=== PATIENT | female | born 1955 | race Hispanic/Latino ===

== ENCOUNTER 2017-03-02 06:04 | Day surgery (SDC) | payer BC ==
[2017-02-25 11:15] VITALS: BMI 32.1
[2017-03-02 07:06] LABS: BASO # 0.03 K/mm3 (0.0-2.0); BASO % 0.3 % (0.0-3.0); EOS # 0.2 (0.0-0.7); EOS % 1.8 % (1.5-5.0); GRAN # 6.5 (1.4-6.5); GRAN % 57.2 % (50.0-68.0); HEMATOCRIT 41.3 % (36.0-48.0); LYMPH % 35.1 % (22.0-35.0); MEAN CELL VOLUME 90.8 fl (80.0-105.0); MEAN CORPUSCULAR HEMOGLOBIN 29.5 pg (25.0-35.0); MEAN CORPUSCULAR HGB CONC 32.4 g/dl (31.0-37.0); MEAN PLATELET VOLUME 9.5 fl (7.0-11.0); MONO # 0.6 (0.1-0.6); MONO % 5.6 % (1.0-6.0); RED CELL DISTRIBUTION WIDTH 13.1 % (11.5-14.5); WHITE BLOOD COUNT 11.4 10^3/ul (4.5-11.0)
[2017-03-02 07:09] LABS: BLOOD UREA NITROGEN 16 mg/dL (7-21); CALCIUM 9.1 mg/dL (8.4-10.5); CARBON DIOXIDE 27 mmol/L (21-33); CHLORIDE 105 mmol/L (98-107); GFR AFRICAN-AMERICAN > 60; GLUCOSE,RANDOM 176 mg/dL (70-110); POTASSIUM 4.3 mmol/L (3.6-5.0); SODIUM 145 mmol/L (132-148)
[2017-03-02] MEDS ORDERED: Iohexol 350 MG/100 ML VIAL ONE (07:12)
[2017-03-02] MEDS ORDERED: Lidocaine 2% Inj (20ml) ONE (07:12)
[2017-03-02] MEDS ORDERED: Iohexol 350mgl/ml 50 ML ONE (07:12)
[2017-03-02] MEDS ORDERED: Phenylephrine 10 mg/ml Inj ONE (07:13)
[2017-03-02] MEDS ORDERED: Midazolam 2 MG/2 ML VIAL ONE ×2 (07:51→07:59)
[2017-03-02] MEDS ORDERED: Sodium Chloride 0.9% 1,000 ML IV SCH (08:45)
[2017-03-02 08:57] VITALS: TEMP 98
--- NOTE | 2017-03-02 12:10 | CARD ---
APPROVED REPORT EKG Measurement Heart [id number] <Conclusion> Normal sinus rhythm LAD Inferior infarct, age undetermined PRWP NSSTW changes
[2017-03-02 14:02] VITALS: RESP 18
[2017-03-02 14:03] VITALS: BP 150/89; PULSE 88; O2SAT 94
--- NOTE | 2017-03-02 18:07 | CARDCATH ---
PROCEDURE DATE: 03/02/2017 HISTORY: The patient is a 61-year-old woman, who presents with chest pain. She complains of chest pain as well. The patient's past medical history is notable for a questionable VT 14 years ago. She is currently an active smoker and currently takes Lipitor at home. Her past medical history consists of diabetes mellitus, depression as well as COPD treated with Flonase and Singulair. Because of an abnormal stress test and his cardiac risk factors, the patient was referred for cardiac catheterization. PROCEDURE: Left heart catheterization with coronary angiography and left ventriculogram. The right femoral artery was cannulated with 6-[place] sheath. There were no complications. Findings on catheterization revealed a left ventricle that contracted normally. Estimated ejection fraction is 70%. Her coronary anatomy revealed a right coronary artery that was a codominant vessel. The RCA was diffusely diseased with 50-60% long lesion extending from the proximal to the midportion of the RCA. The RCA was occluded in its midportion. The main artery was a narrow vessel, is free of significant disease. The LAD and diagonal vessels revealed diffuse atherosclerosis throughout its coronary tree with multiple 50 and 60% lesions throughout its course. The circumflex artery was a codominant vessel with diffuse atherosclerosis with multiple 50 and 60% lesions throughout its course. The patient tolerated the procedure well. Angio-Seal was used to close the femoral artery site. In summary, the procedure revealed diffuse atherosclerosis throughout the coronary tree, chronically occluded RCA, multiple 50 and 60% lesions throughout the LAD and circumflex artery. LV function is normal. Given these findings, the patient's treatment will be medical. I have strongly advised her about the need to stop smoking. We will add aspirin to her regimen as well as Lipitor. Rohit Garcia MD
== END 2017-03-02 16:17 | disposition home or self-care (01) ==
LOC: CATH 06:04
PROVIDERS: ATTEND Internal Medicine Cardiovascular Disease
DX: I25.10 Atherosclerotic heart disease of native coronary artery without angina pectoris (principal); E11.9 Type 2 diabetes mellitus without complications; F32.89 Other specified depressive episodes; I25.2 Old myocardial infarction; J44.9 Chronic obstructive pulmonary disease, unspecified
CPT/HCPCS: 36415; 80048; 85025; 85610; 85730; 86850; 86900; 93005; 93458; 99152; C1760; C1769; C2629; J1644; J2250; J3010; J7040 ×2; Q9967

== ENCOUNTER 2017-07-20 14:06 | Inpatient (IN) | payer BC ==
[2017-07-20 15:44] VITALS: BMI 35.3
[2017-07-20] MEDS ORDERED: Albuterol-Ipratrop 3 mg / 0.5 (3 ml) UD IH STA ×3 (16:17→16:26)
[2017-07-20] MEDS ORDERED: cefTRIAXone 1 gm 1 GM/100 ML BAG IVPB STA (16:30)
[2017-07-20] MEDS ORDERED: Azithromycin 500MG/NS 250ml 500 MG/250 ML BAG IVPB STA (16:30)
[2017-07-20] MEDS ORDERED: Magnesium Sulfate 2 GM in Sodium Chloride 0.9% 100 ML IVPB ONE (16:32)
[2017-07-20 17:06] LABS: BASO # 0.03 K/mm3 (0.0-2.0); BASO % 0.2 % (0.0-3.0); EOS % 0.1 % (1.5-5.0); GRAN # 12.34 (1.4-6.5); GRAN % 70.1 % (50.0-68.0); HEMOGLOBIN 12.8 g/dL (12.0-16.0); LYMPH # 3.8 (1.2-3.4); LYMPH % 21.8 % (22.0-35.0); MEAN CELL VOLUME 88.7 fl (80.0-105.0); MEAN CORPUSCULAR HEMOGLOBIN 29.6 pg (25.0-35.0); MEAN CORPUSCULAR HGB CONC 33.4 g/dl (31.0-37.0); MEAN PLATELET VOLUME 9.8 fl (7.0-11.0); MONO # 1.4 (0.1-0.6); MONO % 7.8 % (1.0-6.0); RBC 4.32 10^6/uL (3.5-6.1); RED CELL DISTRIBUTION WIDTH 13.3 % (11.5-14.5); WHITE BLOOD COUNT 17.6 10^3/ul (4.5-11.0)
[2017-07-20 17:10] LABS: VENOUS BLOOD GAS PO2 47 mm/Hg (30-55)
[2017-07-20 17:32] LABS: B-TYPE NATRIURETIC PEPTIDE 192 pg/mL (0-450); TROPONIN I < 0.01 ng/mL
[2017-07-20 17:38] LABS: ALT/SGPT 25 U/L (7-56); AST/SGOT 35 U/L (14-36); BLOOD UREA NITROGEN 19 mg/dL (7-21); CALCIUM 9.4 mg/dL (8.4-10.5); GFR AFRICAN-AMERICAN 50; GFR NON-AFRICAN AMERICAN 42
[2017-07-20 17:40] LABS: CK-MB 1.4 ng/mL (0.0-3.6)
[2017-07-20] MEDS ORDERED: Albuterol-Ipratrop 3 mg / 0.5 (3 ml) UD IH PRN (19:34)
--- NOTE | 2017-07-20 21:20 | ED PDOC ---
Arrival/HPI - General Chief Complaint: Shortness Of Breath Time Seen by Provider: 07/20/17 15:59 Historian: Patient - History of Present Illness Narrative History of Present Illness (Text): 07/20/17 21:21 62yr old female with hx of COPD presents today with cough, sob and fevers x 4-5 days. pt states she was seen by her PMD and diagnosed with the flu 5 days ago. pt states she has been taking tamiflu but not feeling better. pt states that she hasnt been eating well. pt states she has been fatigued and unable to get out of bed. pt states she started to have increased difficulty breathing over the past few days and had xray today. pt presents with continued SOB. no vomiting/diarrhea. no cp. no abdominal pain. no other complaints. Time/Duration: Other (5 days) Symptom Course: Worsening Quality: Aching Severity Level: 5 Past Medical History - Provider Review Nursing Documentation Reviewed: Yes - Travel History Have you recently traveled outside [place] w/in the past 3 mons?: No - Tetanus Immunization Tetanus Immunization: Unknown - Cardiac Hx [place]: Yes Hx Pacemaker: No - Pulmonary Hx Chronic Obstructive Pulmonary Disease (COPD): Yes - Neurological Hx Paralysis: No - Hematological/Oncological Hx Blood Transfusions: No - Musculoskeletal/Rheumatological Hx Musculoskeletal Disorders: Yes - Psychiatric Hx Anxiety: Yes Hx Depression: Yes Hx Emotional Abuse: No Hx Physical Abuse: No Hx Substance Use: No - Surgical History Other/Comment: ovary removed - Anesthesia Hx Anesthesia Reactions: No Hx Malignant Hyperthermia: No - Suicidal Assessment Feels Threatened In Home Enviroment: No Family/Social History - Physician Review Nursing Documentation Reviewed: Yes Family/Social History: Unknown Family HX Smoking Status: Former Smoker Hx Alcohol Use: No Hx Substance Use: No Allergies/Home Meds Allergies/Adverse Reactions: Allergies fluoxetine [From Prozac] Allergy (Severe, Verified 07/20/17 16:19) HIVES Home Medications: Home Meds Medication Instructions Recorded Confirmed Alprazolam [Xanax] 0.5 mg PO BID PRN 02/23/17 03/02/17 Fluticasone Nasal [Flonase] 2 spr NS DAILY 02/23/17 03/02/17 Montelukast [Singulair] 10 mg PO HS 02/23/17 03/02/17 Venlafaxine [Effexor XR] 300 mg PO HS 02/23/17 03/02/17 traZODone [trazodone Hydrochloride] 150 mg PO HS 02/23/17 03/02/17 Aspirin 81 mg PO DAILY 03/02/17 03/02/17 Atorvastatin [Lipitor] 20 mg PO DAILY 03/02/17 03/02/17 Review of Systems - Review of Systems Constitutional: Fatigue, Fevers ENT: Sore Throat, Sinus Congestion Respiratory: SOB, Cough, Wheezing Cardiovascular: absent: Chest Pain, Palpitations Gastrointestinal: absent: Abdominal Pain, Nausea, Vomiting Genitourinary Female: absent: Dysuria, Frequency Musculoskeletal: Other (bodyaches). absent: Arthralgias Skin: absent: Rash, Pruritis Neurological: Headache Psychiatric: absent: Anxiety, Depression Physical Exam Vital Signs Reviewed: Yes Vital Signs Temp Pulse Resp BP Pulse Ox 07/20/17 20:55 100 H 25 H 126/74 96 07/20/17 18:10 101 H 18 139/79 86 L 07/20/17 18:00 22 88 L 07/20/17 17:50 89 18 103/75 91 L 07/20/17 16:00 98.4 F 99 H 18 101/71 89 L 07/20/17 15:42 98.5 F 114 H 16 109/68 85 L Temperature: Afebrile Blood Pressure: Normal Pulse: Tachycardic Respiratory Rate: Tachypneic Appearance: Positive for: Well-Appearing, Non-Toxic, Uncomfortable Pain Distress: Moderate Mental Status: Positive for: Alert and Oriented X 3 - Systems Exam Head: Present: Atraumatic Mouth: Present: Moist Mucous Membranes Pharnyx: Present: Normal Nose (External): Present: Atraumatic Nose (Internal): Present: Normal Inspection Neck: Present: Normal Range of Motion, Trachea Midline. No: Meningeal Signs Respiratory/Chest: Present: Accessory Muscle Use, Wheezes, Rhonchi, Tachypneic. No: Rales, Tender to Palpation Cardiovascular: Present: Tachycardic. No: Murmurs Abdomen: No: Tenderness, Rebound, Guarding Back: Present: Normal Inspection. No: CVA Tenderness Upper Extremity: Present: Normal ROM Lower Extremity: No: Edema Neurological: Present: GCS=15, Speech Normal Skin: Present: Warm, Dry Psychiatric: Present: Alert, Oriented x 3 Medical Decision Making ED Course and Treatment: 07/20/17 21:30 62-year-old female history of COPD presents tachypneic hypoxic tachycardic Patient with diffuse wheezing bilaterally, tachypnea saturating 85% on room air Patient was given 3 duo nebs, Solu-Medrol 125MG iv, magnesium 2g iv CBC: White blood cell count 17.6 CMP: Glucose 137 BNP: wnl Troponin within normal limits Chest x-ray shows no infiltrate or effusion EKG shows some sinus tachycardia at [address] elevations pt was seen and evaluated by dr. hu; pt feeling better with medications; still hypoxic, still tachypneic - BIPAP started. rocephin 1g IV zithromax 500mg IV pt reassessment; pt feeling much better on bipap. pt remains stable; will admit to tele. case discussed with dr. Jud saleh; accepts admission with pulm consult dr. zhou. impression; copd exacerbation, leukocytosis admit to tele. Reassessment Condition: Re-examined, Improving,but remains with symptoms - Lab Interpretations Lab Results: 07/20/17 16:30 07/20/17 16:30 Lab Results 07/20/17 16:30: pO2 47, VBG pH 7.40, VBG pCO2 48.0, VBG HCO3 29.7 H, VBG Total CO2 31.2 H, VBG O2 Sat (Calc) 86.0 H, VBG Base Excess 4.0 H, VBG Potassium 4.7, Sodium 133.0, Chloride 99.0, Glucose 141 H, Lactate 1.3, FiO2 21.0, Venous Blood Potassium 4.7 07/20/17 16:30: WBC 17.6 H D, RBC 4.32, Hgb 12.8, Hct 38.3, MCV 88.7, MCH 29.6, MCHC 33.4, RDW 13.3, Plt Count 294, MPV 9.8, Gran % 70.1 H, Lymph % (Auto) 21.8 L, [place] % (Auto) 7.8 H, Eos % (Auto) 0.1 L, Baso % (Auto) 0.2, Gran # 12.34 H, Lymph # (Auto) 3.8 H, [place] # (Auto) 1.4 H, Eos # (Auto) 0.0, Baso # (Auto) 0.03 07/20/17 16:30: Sodium 137, Chloride 95 L, Potassium 4.9, Carbon Dioxide 28, Anion Gap 19, BUN 19, Creatinine 1.3 H, Est GFR ( Amer) 50, Est GFR (Non- Af Amer) 42, Random Glucose 137 H, Calcium 9.4, Total Bilirubin 0.8, AST 35, ALT 25, Alkaline Phosphatase 131 H D, Lactate Dehydrogenase 731 H, Total Creatine Kinase 287 H, CK-MB (CK-2) 1.4, CK-MB (CK-2) % Cancelled, Troponin I < 0.01, NT-Pro-B Natriuret Pep 192, Total Protein 8.0, Albumin 4.0, Globulin 3.9, Albumin/Globulin Ratio 1.0 L 07/20/17 16:30: Influenza Typ A,B (EIA) Negative for flu a/b - Medication Orders Current Medication Orders: Albuterol/Ipratropium (Duoneb 3 Mg/0.5 Mg (3 Ml) Ud) 3 ml IH Q2H PRN PRN Reason: Shortness of Breath Stop: 07/20/17 23:46 Albuterol/Ipratropium (Duoneb 3 Mg/0.5 Mg (3 Ml) Ud) 3 ml IH Q4H JAVIER Alprazolam (Xanax) 0.5 mg PO BID PRN; Protocol PRN Reason: Anxiety Arformoterol Tartrate (Brovana) 15 mcg IH [id number] JAVIER Aspirin (Aspirin Chewable) 81 mg PO DAILY JAVIER Atorvastatin Calcium (Lipitor) 20 mg PO DAILY JAVIER Doxycycline Hyclate (Doryx) 100 mg PO BID JAVIER PRN Reason: Protocol Methylprednisolone (Solu-Medrol) 60 mg IVP Q12 JAVIER Pantoprazole Sodium (Protonix Ec Tab) 40 mg PO DAILY JAVIER Discontinued Medications Albuterol/Ipratropium (Duoneb 3 Mg/0.5 Mg (3 Ml) Ud) 3 ml IH STAT STA Stop: 07/20/17 16:18 Last Admin: 07/20/17 16:38 Dose: 3 ml Albuterol/Ipratropium (Duoneb 3 Mg/0.5 Mg (3 Ml) Ud) 3 ml IH STAT STA Stop: 07/20/17 16:20 Last Admin: 07/20/17 16:59 Dose: 3 ml Albuterol/Ipratropium (Duoneb 3 Mg/0.5 Mg (3 Ml) Ud) 3 ml IH STAT STA Stop: 07/20/17 16:27 Last Admin: 07/20/17 16:59 Dose: 3 ml Ceftriaxone Sodium (Rocephin 1 Gram Ivpb) 1 gm in 100 mls @ 200 mls/hr IVPB STAT STA PRN Reason: Protocol Stop: 07/20/17 16:59 Last Admin: 07/20/17 16:38 Dose: 200 mls/hr eMAR Start Stop Document 07/20/17 16:38 EQ (Rec: 07/20/17 16:38 EQ [id number]) Intravenous Solution Start Date 07/20/17 Start Time 16:38 Azithromycin (Zithromax 500mg In Ns) 500 mg in 250 mls @ 167 mls/hr IVPB STAT STA PRN Reason: Protocol Stop: 07/20/17 17:59 Last Admin: 07/20/17 18:01 Dose: 167 mls/hr eMAR Start Stop Document 07/20/17 18:01 EQ (Rec: 07/20/17 18:01 EQ [id number]) Intravenous Solution Start Date 07/20/17 Start Time 18:01 Magnesium Sulfate 2 gm/ Sodium (Chloride) 104 mls @ 102 mls/hr IVPB ONCE ONE Stop: 07/20/17 17:33 Last Admin: 07/20/17 16:57 Dose: 102 mls/hr eMAR Start Stop Document 07/20/17 16:57 EQ (Rec: 07/20/17 16:58 EQ [id number]) Intravenous Solution Start Date 07/20/17 Start Time 16:57 Methylprednisolone (Solu-Medrol) 125 mg IVP STAT STA Stop: 07/20/17 16:20 Last Admin: 07/20/17 16:38 Dose: 125 mg IVP Administration Document 07/20/17 16:38 EQ (Rec: 07/20/17 16:38 EQ [id number]) Charges for Administration # of IVP Administrations 1 Disposition/Present on Arrival - Present on Arrival Any Indicators Present on Arrival: No History of DVT/PE: No History of Uncontrolled Diabetes: No Urinary Catheter: No History of Decub. Ulcer: No History Surgical Site Infection Following: None - Disposition Have Diagnosis and Disposition been Completed?: Yes Diagnosis: COPD exacerbation, Leukocytosis, Hypoxia Disposition: HOSPITALIZED Disposition Time: 18:25 Patient Plan: Admission, Telemetry Patient Problems: Current Active Problems Problem Status Onset COPD exacerbation Acute Hypoxia Acute Leukocytosis Acute Condition: FAIR
[2017-07-20 23:27] LABS: URINE BILIRUBIN NEGATIVE (NEGATIVE); URINE BLOOD TRACE-LYSED (NEGATIVE); URINE GLUCOSE (UA) 100 mg/dL (NEGATIVE); URINE LEUKOCYTE ESTERASE NEGATIVE Leu/uL (NEGATIVE); URINE NITRATE NEGATIVE (NEGATIVE); URINE PROTEIN TRACE mg/dL (<30 mg/dL)
[2017-07-20 23:45] LABS: URINE APPEARANCE CLEAR (CLEAR); URINE COLOR YELLOW (YELLOW)
[2017-07-20 23:53] LABS: URINE BACTERIA MOD (NEG); URINE WBC 0 - 2 /hpf (0-6)
[2017-07-21] MEDS: Albuterol-Ipratrop 3 mg / 0.5 (3 ml) UD IH SCH ×7 (01:17→21:07)
[2017-07-21] MEDS: Arformoterol 15 mcg/2 ml Inh Sol IH SCH ×3 (08:01→21:07)
[2017-07-21] MEDS: Fluticasone Nasal 50 mcg/Spray NS SCH (09:43)
--- NOTE | 2017-07-21 10:03 | CARD ---
APPROVED REPORT EKG Measurement Heart [id number] <Conclusion> Sinus tachycardia LAD IMI, old PRWP NSSTW changes No change
[2017-07-21 11:11] LABS: BASO # 0.02 K/mm3 (0.0-2.0); BASO % 0.1 % (0.0-3.0); GRAN # 16.26 (1.4-6.5); GRAN % 81.6 % (50.0-68.0); HEMOGLOBIN 12.4 g/dL (12.0-16.0); LYMPH # 2.9 (1.2-3.4); LYMPH % 14.4 % (22.0-35.0); MEAN CELL VOLUME 88.7 fl (80.0-105.0); MEAN CORPUSCULAR HEMOGLOBIN 29.1 pg (25.0-35.0); MEAN CORPUSCULAR HGB CONC 32.8 g/dl (31.0-37.0); MONO # 0.8 (0.1-0.6); MONO % 3.9 % (1.0-6.0); RBC 4.26 10^6/uL (3.5-6.1); RED CELL DISTRIBUTION WIDTH 13.4 % (11.5-14.5); WHITE BLOOD COUNT 19.9 10^3/ul (4.5-11.0)
[2017-07-21 11:13] LABS: ALB/GLOB RATIO 0.9 (1.1-1.8); ALBUMIN 3.8 g/dL (3.0-4.8); ALT/SGPT 22 U/L (7-56); AST/SGOT 31 U/L (14-36); BLOOD UREA NITROGEN 22 mg/dL (7-21); CALCIUM 9.7 mg/dL (8.4-10.5); GFR AFRICAN-AMERICAN > 60; GFR NON-AFRICAN AMERICAN 56
[2017-07-21] MEDS: Budesonide 0.5 mg/2 ml Inhal Susp UD IH SCH (11:48)
--- NOTE | 2017-07-21 11:48 | CON ---
DATE: 07/21/2017 PULMONARY CONSULTATION REASON FOR PULMONARY CONSULTATION: COPD. REFERRING PHYSICIAN: Gavin Ku MD HISTORY OF PRESENT ILLNESS: The patient is a 62-year-old female, with past medical history significant for chronic obstructive pulmonary disease, positive extensive smoking history, coronary artery disease, who presents to [facility] with increasing shortness of breath at rest, dyspnea on exertion, cough, and minimal sputum production for the past 5 days. There is no history of chest pain, coughing up of blood, or chest pain - made worse with deep respirations. The patient did state to fevers at home. No history of chills or infectious exposure. No history of night sweats, weight loss or appetite change prior to the above events. No history of leg or calf pains. No history of syncope or diaphoresis. No history of recent travel or trauma. REVIEW OF SYSTEMS: The patient does state to "feeling achy" over the past 5 days. No nausea, vomiting or diarrhea. No acute urinary symptoms. No new neurologic complaints. Rest of the review of systems is negative. ALLERGIES: PROZAC. SOCIAL HISTORY: Positive for extensive tobacco usage. No alcohol. FAMILY HISTORY: No inheritable diseases. HOME MEDICATIONS: Include trazodone, Effexor, Singulair, Flonase, Lipitor, aspirin, Xanax. PHYSICAL EXAMINATION GENERAL: The patient appears quite comfortable at the present time. She is currently on BiPAP. VITAL SIGNS: Temperature is 97.4, pulse is 88, respirations 18/20, blood pressure 130/85. Oxygen saturation on BiPAP is 98%. HEENT: Normocephalic, atraumatic. No JVD. CARDIOVASCULAR: Positive S1, S2. No S3 gallop. LUNGS: Decreased breath sounds at the bases. Minimal rhonchi. Minimal wheezing. EXTREMITIES: No clubbing, cyanosis or edema. Calves are nontender to palpation. GI: Abdomen is soft, nontender and nondistended. Bowel sounds are positive. SKIN: No acute rash. NEUROLOGIC: Limited at the present time. PERTINENT LABORATORY DATA: Chest x-ray was done yesterday and reviewed. There is no active pulmonary disease noted. CBC: White count 17.6, hemoglobin 12.8, hematocrit 38.3, platelets of 294,000. Complete metabolic profile: Chloride 95, creatinine 1.3, glucose 137, alkaline phosphatase 131, LDH 731, creatinine kinase 287. Rest of the metabolic profile is within normal limits. IMPRESSION: 1. Acute bronchitis. 2. Advanced chronic obstructive pulmonary disease. 3. Leukocytosis. 4. Coronary artery disease. PLAN: The patient presents to [facility] with a 5-day history of worsening pulmonary symptoms. I did review the chest x-ray as above. The chest x-ray shows no active disease. I have also reviewed the laboratory data. A mild leukocytosis is noted. Cultures have been ordered and will be analyzed when feasible. The patient has been placed on antibiotic therapy. I will also add intravenous Rocephin for the time being. On physical exam, there is mild bronchospasm noted. I will continue the current nebulizer treatments and intravenous steroids for now. I will also add inhaled Pulmicort. The patient is currently on BiPAP. I will try to switch to nasal cannula this morning. The patient does appear quite comfortable at the time of my examination. Repeat a.m. labs are pending. Additional pulmonary intervention will be based on the clinical status of the patient, as well as the above results. I will discuss the above with Dr. Ku this morning. Thank you very much for this pulmonary consultation. Patrice Osborn MD MTDD
[2017-07-21] MEDS: Pantoprazole 40 mg EC Tab PO SCH (12:12)
[2017-07-21] MEDS: cefTRIAXone 1 gm 1 GM/100 ML BAG IVPB SCH (13:58)
[2017-07-21] MEDS ORDERED: Influenza Vaccine 60 mcg/0.5 mL SYR (4YR UP) IM ONE (16:26)
[2017-07-21] MEDS ORDERED: Pneumococcal 23-Valent Vaccine IM ONE (16:26)
[2017-07-21] MEDS: Venlafaxine 75 mg ER Cap PO SCH (21:20)
--- NOTE | 2017-07-21 21:30 | HP ---
HISTORY OF PRESENT ILLNESS: The patient is a 62 year old woman with a past medical history of advanced COPD who presented to [facility] (Former[facility]) for evaluation of a 3 day history of progressively worsening chest tightness, wheeze and cough intermittently productive of green sputum. The patient was seen in her PMD's office approximately 1 week ago for complaint of myalgias, arthralgias, fevers and cough and was diagnosed with the flu. She completed a course of Tamiflu and was seen 5 days later for a followup visit at which point in time she was noted to be asymptomatic. She says that approximately 2 days later she developed recurrence of her pulmonary symptoms associated with mild chest congestion and cough. Over the following 36-48 hours her symptoms had increased to the point where she was quite dyspneic at rest which prompted her visit to the ED. Upon arrival to the ED she was noted to be tachypneic with a respiratory rate of 22 and hypoxic with an oxygen saturation of 85% on room air, as well as tachycardic with a pulse of 114. She received Solu-Medrol 125 mg IV x 1 and was placed on a BiPAP with moderate improvement in her symptoms. Given her persistent bronchospasm she was admitted to the general medical beal for continued management of COPD exacerbation. PAST MEDICAL HISTORY: As per HPI, also CAD s/p PCI with stent placement, hyperlipidemia, hypertension , anxiety disorder and bipolar disorder. PAST SURGICAL HISTORY: Left carotid endarterectomy, right oophorectomy. ALLERGIES: FLUOXETINE. MEDICATIONS: Lipitor 20 mg p.o. daily, Aspirin 81 mg p.o. daily, Singulair 10 mg p.o. at bedtime, Xanax 0.5 mg p.o. b.i.d., Venlafaxine 300 mg p.o. at bedtime and Trazodone 150 mg p.o. at bedtime. FAMILY HISTORY: Significant for hypertension and coronary artery disease. SOCIAL HISTORY: The patient reports a former [id number] smoking history but states that for the past 5 years she only smokes occasional cigarettes. She also reports social alcohol use and denies illicit drug abuse. REVIEW OF SYSTEMS: A 14-point review of systems is negative except as per HPI. PHYSICAL EXAMINATION: VITAL SIGNS: Temperature 97.4, pulse 88, blood pressure 130/85, respiratory rate 20, oxygen saturation 98% on 3 liters NC. GENERAL: No apparent distress. HEENT: PERRL. EOMI. No scleral icterus. No conjunctival pallor. NECK: Supple with full range of motion. No JVD. No bruits. LUNGS: Scattered wheeze with few rhonchi. CARDIOVASCULAR: Regular rate and rhythm. Normal S1 and S2. ABDOMEN: Normal active bowel sounds. Soft, nontender, nondistended. EXTREMITIES: No edema. NEUROLOGIC: Awake, alert, and oriented x3. No focal motor deficits. LABORATORY DATA: WBC 17.6 with 70% neutrophils, hemoglobin 13, hematocrit 38, platelets 294. Sodium 137, potassium 4.9, chloride 95, bicarb 28, BUN 19, creatinine 1.3, glucose 137. Influenza type A/B are negative. ASSESSMENT: The patient is a 62 year old woman with a past medical history of advanced COPD with an extensive smoking history, CAD s/p PCI with stent placement, hypertension, hyperlipidemia and anxiety disorder who presented for evaluation of a several day history of worsening chest tightness, wheeze and cough intermittently productive of green sputum who was admitted for management of COPD exacerbation. PLAN: 1. COPD exacerbation. Continue supplemental oxygen, bronchodilators and BiPAP as needed. Start Solu-Medrol 60 mg i.v. q. 12 hours. Continue Doxycycline 100 mg p.o. bi.d. and Ceftriaxone [address] Osborn of Pulmonary and Critical Care Medicine has been consulted for further evaluation and recommendations. 2. CAD s/p PCI with stent placement. Resume Aspirin 81 mg p.o. daily and Lipitor 20 mg p.o. daily. 3. Hypertension. Blood pressure controlled, off medications. 4. Hyperlipidemia. Continue Lipitor 20 mg p.o. daily. 5. Anxiety. Continue Xanax 0.5 mg p.o. b.i.d. 6. Prophylaxis. Continue Protonix 40 mg p.o. daily for GI prophylaxis. DVT prophylaxis is not indicated as the patient is ambulatory. CODE STATUS: Full code. Gavin Ku MD MTDBrittany
[2017-07-21] MEDS ORDERED: Venlafaxine 75 mg ER Cap PO SCH (22:00)
[2017-07-22] MEDS: Albuterol-Ipratrop 3 mg / 0.5 (3 ml) UD IH SCH ×5 (00:30→20:03)
[2017-07-22 06:34] LABS: BASO # 0.02 K/mm3 (0.0-2.0); BASO % 0.1 % (0.0-3.0); GRAN # 19.33 (1.4-6.5); GRAN % 86.8 % (50.0-68.0); LYMPH # 2.1 (1.2-3.4); LYMPH % 9.3 % (22.0-35.0); MEAN CELL VOLUME 90.7 fl (80.0-105.0); MEAN CORPUSCULAR HEMOGLOBIN 29.3 pg (25.0-35.0); MEAN CORPUSCULAR HGB CONC 32.3 g/dl (31.0-37.0); MEAN PLATELET VOLUME 10.1 fl (7.0-11.0); MONO # 0.8 (0.1-0.6); MONO % 3.8 % (1.0-6.0); RBC 4.1 10^6/uL (3.5-6.1); RED CELL DISTRIBUTION WIDTH 13.7 % (11.5-14.5); WHITE BLOOD COUNT 22.3 10^3/ul (4.5-11.0)
[2017-07-22 07:11] LABS: ALB/GLOB RATIO 0.9 (1.1-1.8); ALBUMIN 3.5 g/dL (3.0-4.8); ALT/SGPT 17 U/L (7-56); AST/SGOT 34 U/L (14-36); BLOOD UREA NITROGEN 33 mg/dL (7-21); CALCIUM 9.4 mg/dL (8.4-10.5); GFR AFRICAN-AMERICAN > 60; GFR NON-AFRICAN AMERICAN 56
[2017-07-22] MEDS: Budesonide 0.5 mg/2 ml Inhal Susp UD IH SCH ×2 (07:31→20:03)
[2017-07-22] MEDS: Arformoterol 15 mcg/2 ml Inh Sol IH SCH ×2 (07:31→20:03)
[2017-07-22] MEDS: cefTRIAXone 1 gm 1 GM/100 ML BAG IVPB SCH (09:45)
[2017-07-22] MEDS: Pantoprazole 40 mg EC Tab PO SCH (09:45)
[2017-07-22] MEDS: MethylPREDNISolone 40 mg Vial IVP SCH ×2 (09:46→22:02)
[2017-07-22] MEDS: Insulin Reg-MEDIUM-Coverage SC SCH ×4 (09:47→22:10)
[2017-07-22] MEDS: Fluticasone Nasal 50 mcg/Spray NS SCH (09:48)
--- NOTE | 2017-07-22 10:21 | PN ---
DATE: 07/22/2017 PULMONARY NOTE SUBJECTIVE: The patient appears much more comfortable this morning. She is not short of breath at rest. PHYSICAL EXAMINATION: VITAL SIGNS: Temperature is 97.7, pulse 94, respirations 18/20, blood pressure 125/67. Oxygen saturation on nasal cannula is 90-95%. HEENT: Normocephalic, atraumatic. No JVD. CARDIOVASCULAR: Positive S1, S2. No S3 gallop. LUNGS: Decreased breath sounds at the bases. Less rhonchi. Less wheezing. EXTREMITIES: No clubbing, cyanosis or edema. Calves are nontender to palpation. GI: Abdomen is soft, nontender and nondistended. Bowel sounds are positive. SKIN: No acute rash. NEUROLOGIC: Limited at the present time. IMPRESSION: 1. Acute bronchitis. 2. Advanced chronic obstructive pulmonary disease. 3. Leukocytosis. 4. Coronary artery disease. PLAN: The patient appears comfortable this morning. She is not short of breath at rest. She does state to feeling much better overall. On physical exam, her bronchospasm is definitely less. In addition, the alveolar-arterial gradient is also less. I will continue with the current nebulizer treatments for now. The intravenous steroids have been decreased by Dr. Ku - which I agree with. The patient remains on antibiotic therapy. There are no temperatures noted. There is a leukocytosis present - partly due to the steroids. Clinical status of the patient is definitely improved. I have advised the patient to be out of bed most of the day if possible. I will discuss the above with Dr. Ku. Patrice Osborn MD MTDBrittany
--- NOTE | 2017-07-22 12:18 | PN ---
SUBJECTIVE: The patient is seen and examined at bedside on the general medical beal. No acute events overnight. She remains afebrile and hemodynamically stable. This morning she reports mild improvement in her respiratory symptoms but reports continued dyspnea with exertion. She otherwise denies chest pain, palpitations , fevers, chills, or rigors. OBJECTIVE VITAL SIGNS: Temperature 97.7, pulse 94, blood pressure 125/67, respiratory rate 21, oxygen saturation 95% on 2 liters nasal cannula. GENERAL: No apparent distress. HEENT: PERRL. EOMI. No scleral icterus. No conjunctival pallor. NECK: Supple with full range of motion. No JVD. No bruits. LUNGS: Scattered wheeze with a few rhonchi. CARDIOVASCULAR: Regular rate and rhythm. Normal S1 and S2. ABDOMEN: Normoactive bowel sounds. Soft, nontender, and nondistended. EXTREMITIES: No edema. NEUROLOGIC: Awake, alert, and oriented x3. No focal or motor deficits. LABORATORY DATA: WBC 22 with 87% neutrophils, hemoglobin 12, hematocrit 37, platelets 384,000. Sodium 141, potassium 4.9, chloride 100, bicarbonate 29, BUN 33, creatinine 1, glucose 435. Blood cultures with no growth to date. ASSESSMENT: The patient is a 62 year old woman with a multiple medical comorbidities including advanced COPD who presented for evaluation of a several day history of worsening chest tightness, wheeze and cough intermittently productive of green sputum who was admitted for management of COPD exacerbation. PLAN 1. COPD exacerbation. Input from Dr. Osborn noted and greatly appreciated. Continue supplemental oxygen and bronchodilators as needed. Continue Doxycycline 100 mg p.o. b.i.d. and Ceftriaxone 1 g IV daily. Taper Solu-Medrol to 40 mg IV q. 12 hours. Encourage ambulation. 2. CAD s/p PCI with stent placement. Continue Aspirin 81 mg p.o. daily and Lipitor 20 mg p.o. daily. 3. Hypertension. Blood pressure remains stable, off medications. 4. Hyperlipidemia. Continue Lipitor 20 mg p.o. daily. 5. Anxiety disorder. Continue Xanax 0.5 mg p.o. b.i.d. 6. Bipolar disorder. Continue Venlafaxine 300 mg p.o. daily and Trazodone 150 mg p.o. at bedtime. 7. Prophylaxis. Continue Protonix for GI prophylaxis. DVT prophylaxis not indicated as the patient is ambulatory. CODE STATUS: Full code. Gavin Ku MD MTDD
[2017-07-22] MEDS: Venlafaxine 75 mg ER Cap PO SCH (20:40)
[2017-07-22] MEDS: guaiFENesin-Codeine 100-10mg/5ml Syrup (5 ml) UD PO PRN (22:03)
[2017-07-23] MEDS: Albuterol-Ipratrop 3 mg / 0.5 (3 ml) UD IH SCH ×6 (00:30→20:30)
[2017-07-23] MEDS: guaiFENesin-Codeine 100-10mg/5ml Syrup (5 ml) UD PO PRN ×2 (02:48→05:49)
[2017-07-23 07:03] LABS: BASO # 0.02 K/mm3 (0.0-2.0); BASO % 0.1 % (0.0-3.0); GRAN # 17.99 (1.4-6.5); GRAN % 84.2 % (50.0-68.0); HEMOGLOBIN 12.5 g/dL (12.0-16.0); LYMPH # 2.6 (1.2-3.4); LYMPH % 12.2 % (22.0-35.0); MEAN CORPUSCULAR HEMOGLOBIN 29.6 pg (25.0-35.0); MEAN CORPUSCULAR HGB CONC 32.5 g/dl (31.0-37.0); MEAN PLATELET VOLUME 9.8 fl (7.0-11.0); MONO # 0.7 (0.1-0.6); MONO % 3.5 % (1.0-6.0); RBC 4.23 10^6/uL (3.5-6.1); RED CELL DISTRIBUTION WIDTH 13.8 % (11.5-14.5); WHITE BLOOD COUNT 21.4 10^3/ul (4.5-11.0)
[2017-07-23 07:05] LABS: ALB/GLOB RATIO 0.9 (1.1-1.8); ALBUMIN 3.5 g/dL (3.0-4.8); ALT/SGPT 14 U/L (7-56); AST/SGOT 39 U/L (14-36); BLOOD UREA NITROGEN 29 mg/dL (7-21); CALCIUM 9.7 mg/dL (8.4-10.5); GFR AFRICAN-AMERICAN > 60; GFR NON-AFRICAN AMERICAN > 60
[2017-07-23] MEDS: Budesonide 0.5 mg/2 ml Inhal Susp UD IH SCH ×2 (07:10→20:30)
[2017-07-23] MEDS: Arformoterol 15 mcg/2 ml Inh Sol IH SCH ×2 (07:10→20:30)
--- NOTE | 2017-07-23 07:43 | PN ---
DATE: 07/23/2017 PULMONARY NOTE SUBJECTIVE: The patient appears very comfortable this morning. She is not short of breath at rest. PHYSICAL EXAMINATION VITAL SIGNS: (Last noted in the computer): Temperature is 98.1, pulse is 94, respirations 18/20, blood pressure 147/79. Oxygen saturation on nasal cannula is 95%. HEENT: Normocephalic, atraumatic. No JVD. CARDIOVASCULAR: Positive S1, S2. No S3 gallop. LUNGS: Decreased breath sounds at the bases. Less rhonchi. Much less wheezing. EXTREMITIES: No clubbing, cyanosis or edema. Calves are nontender to palpation. GI: Abdomen is soft, nontender and nondistended. Bowel sounds are positive. SKIN: No acute rash. NEUROLOGIC: Limited at the present time. IMPRESSION: 1. Acute bronchitis. 2. Advanced chronic obstructive pulmonary disease. 3. Leukocytosis. 4. Coronary artery disease. PLAN: The patient appears comfortable this morning. She is not short of breath at rest. She does state to feeling much better overall. On physical exam, her bronchospasm continues to slowly resolve. In addition, the alveolar-arterial gradient also continues to resolve. I will continue the current nebulizer treatments and decrease the intravenous steroids this morning. The patient remains on antibiotic therapy. All cultures are so far negative. Repeat a.m. labs are pending. Clinical status of the patient is significantly improved - compared to the initial presentation. Hopefully, we can change to oral therapy in the next 24-48 hours. I will discuss the above with Dr. Ku. Patrice Osborn MD [facility]
[2017-07-23] MEDS: Insulin Reg-MEDIUM-Coverage SC SCH ×4 (08:40→23:08)
[2017-07-23] MEDS: Pantoprazole 40 mg EC Tab PO SCH (10:04)
[2017-07-23] MEDS: cefTRIAXone 1 gm 1 GM/100 ML BAG IVPB SCH (10:04)
[2017-07-23] MEDS: MethylPREDNISolone 40 mg Vial IVP SCH ×2 (10:04→22:46)
--- NOTE | 2017-07-23 10:52 | PN ---
SUBJECTIVE: The patient was seen and examined at bedside on the general medical beal. No acute events overnight. She remains afebrile and hemodynamically stable. She reports continued improvement in her respiratory status but is still symptomatic with exertion, albeit improved as compared to yesterday. Otherwise she denies fevers, chills or rigors. OBJECTIVE VITAL SIGNS: Temperature 98.1, pulse 94, blood pressure 147/79, respiratory rate 20, oxygen saturation 95% on 2 liters nasal cannula. GENERAL: No apparent distress. HEENT: PERRL. EOMI. No scleral icterus. No conjunctival pallor. NECK: Supple with full range of motion. No JVD. No bruits. LUNGS: Scattered wheeze (improved). CARDIOVASCULAR: Regular rate and rhythm. Normal S1 and S2. ABDOMEN: Normoactive bowel sounds. Soft, nontender and nondistended. EXTREMITIES: No edema. NEUROLOGIC: Awake, alert and oriented x3. No focal motor deficits. LABORATORY DATA: WBC 21.4 with 84% neutrophils, hemoglobin 12.5, hematocrit 38 and platelets 421, 000. Sodium 145, potassium 5.2, chloride 102, bicarbonate 31, BUN 29, creatinine 0.9 , and glucose 340. Blood cultures with no growth to date. ASSESSMENT: The patient is a 62 year old woman with multiple comorbidities including advanced COPD who presented for evaluation of several day history of worsening chest tightness, wheeze and cough intermittently productive of green sputum who was admitted for management of COPD exacerbation. PLAN 1. COPD exacerbation, improving. Input from Dr. Osborn greatly appreciated. Continue supplemental oxygen and bronchodilators as needed. Continue Doxycycline 100 mg p.o. b.i.d. and Ceftriaxone 1 g IV daily. Continue to taper Solu-Medrol to 30 mg IV q. 12 hours. Encourage ambulation. 2. CAD s/p PCI with stent placement. Continue Aspirin 81 mg p.o. daily and Lipitor 20 mg p.o. daily. 3. Hypertension. Blood pressure remains stable, off medications. 4. Hyperlipidemia. Continue Lipitor 20 mg p.o. daily. 5. Anxiety disorder. Continue Xanax 0.5 mg p.o. b.i.d. 6. Bipolar disorder. Continue Venlafaxine 300 mg p.o. daily and Trazodone 150 mg p.o. at bedtime. 7. Prophylaxis: Continue Protonix for GI prophylaxis. DVT prophylaxis is not indicated as the patient is ambulatory. CODE STATUS: Full code. Gavin Ku MD [facility]
[2017-07-23] MEDS: Venlafaxine 75 mg ER Cap PO SCH (20:08)
[2017-07-24 06:00] LABS: BASO # 0.02 K/mm3 (0.0-2.0); BASO % 0.1 % (0.0-3.0); GRAN # 14.82 (1.4-6.5); GRAN % 78.7 % (50.0-68.0); HEMOGLOBIN 14.4 g/dL (12.0-16.0); LYMPH # 3.4 (1.2-3.4); LYMPH % 18.1 % (22.0-35.0); MEAN CELL VOLUME 90.6 fl (80.0-105.0); MEAN CORPUSCULAR HEMOGLOBIN 29.4 pg (25.0-35.0); MEAN CORPUSCULAR HGB CONC 32.5 g/dl (31.0-37.0); MEAN PLATELET VOLUME 9.8 fl (7.0-11.0); MONO # 0.6 (0.1-0.6); MONO % 3.1 % (1.0-6.0); RBC 4.89 10^6/uL (3.5-6.1); RED CELL DISTRIBUTION WIDTH 13.8 % (11.5-14.5); WHITE BLOOD COUNT 18.9 10^3/ul (4.5-11.0)
[2017-07-24 06:22] VITALS: RESP 20
[2017-07-24 06:26] LABS: ALB/GLOB RATIO 0.9 (1.1-1.8); ALBUMIN 3.8 g/dL (3.0-4.8); ALT/SGPT 17 U/L (7-56); AST/SGOT 28 U/L (14-36); BLOOD UREA NITROGEN 29 mg/dL (7-21); CALCIUM 9.9 mg/dL (8.4-10.5); GFR AFRICAN-AMERICAN > 60; GFR NON-AFRICAN AMERICAN 50
[2017-07-24] MEDS: Arformoterol 15 mcg/2 ml Inh Sol IH SCH ×2 (07:57→19:19)
[2017-07-24] MEDS: Albuterol-Ipratrop 3 mg / 0.5 (3 ml) UD IH SCH ×4 (07:57→23:30)
[2017-07-24] MEDS: Budesonide 0.5 mg/2 ml Inhal Susp UD IH SCH ×2 (07:58→19:19)
[2017-07-24] MEDS: Insulin Reg-MEDIUM-Coverage SC SCH ×4 (08:28→22:05)
--- NOTE | 2017-07-24 09:28 | PN ---
DATE: 07/24/2017 PULMONARY NOTE SUBJECTIVE: The patient appears very comfortable this morning. She is not short of breath at rest. PHYSICAL EXAMINATION VITAL SIGNS: Temperature is 98.5, pulse is 89, respirations 18/20, blood pressure 115/81. Oxygen saturation on nasal cannula 93%-95%. HEENT: Normocephalic, atraumatic. No JVD. CARDIOVASCULAR: Positive S1, S2. No S3 gallop. LUNGS: Improved breath sounds at the bases. Much less/ very minimal rhonchi. No wheezing. EXTREMITIES: No clubbing, cyanosis or edema. Calves are nontender to palpation. GI: Abdomen is soft, nontender and nondistended. Bowel sounds are positive. SKIN: No acute rash. NEUROLOGIC: Limited at the present time. IMPRESSION: 1. Acute bronchitis. 2. Advanced chronic obstructive pulmonary disease. 3. Leukocytosis - resolving. 4. Coronary artery disease. PLAN: The patient appears very comfortable this morning. She is not short of breath at rest. She does state to feeling much, much better overall. On physical exam, her bronchospasm continues to resolve. I will continue the current nebulizer treatments and change to oral steroids this morning. I did review the CBC from this morning. The leukocytosis is decreased/improved. The patient remains on antibiotics. No temperatures. Clinical status of the patient is significantly improved overall. Again, the patient does state to feeling much, much better this morning I will discuss the above with Dr. Ku this morning. Patrice Osborn MD [facility]
[2017-07-24] MEDS: cefTRIAXone 1 gm 1 GM/100 ML BAG IVPB SCH (09:37)
[2017-07-24] MEDS: Pantoprazole 40 mg EC Tab PO SCH (09:37)
[2017-07-24] MEDS: Fluticasone Nasal 50 mcg/Spray NS SCH (09:45)
[2017-07-24] MEDS: Venlafaxine 75 mg ER Cap PO SCH (21:07)
[2017-07-25 01:56] VITALS: BP 122/86
[2017-07-25 06:39] LABS: BASO # 0.01 K/mm3 (0.0-2.0); EOS % 0.1 % (1.5-5.0); GRAN # 12.73 (1.4-6.5); GRAN % 62.9 % (50.0-68.0); HEMOGLOBIN 14.1 g/dL (12.0-16.0); LYMPH # 6.6 (1.2-3.4); LYMPH % 32.3 % (22.0-35.0); MEAN CELL VOLUME 89.2 fl (80.0-105.0); MEAN CORPUSCULAR HEMOGLOBIN 29.3 pg (25.0-35.0); MEAN CORPUSCULAR HGB CONC 32.8 g/dl (31.0-37.0); MEAN PLATELET VOLUME 9.7 fl (7.0-11.0); MONO % 4.7 % (1.0-6.0); RBC 4.82 10^6/uL (3.5-6.1); RED CELL DISTRIBUTION WIDTH 13.7 % (11.5-14.5); WHITE BLOOD COUNT 20.3 10^3/ul (4.5-11.0)
[2017-07-25 07:01] LABS: ALB/GLOB RATIO 0.9 (1.1-1.8); ALBUMIN 3.7 g/dL (3.0-4.8); ALT/SGPT 22 U/L (7-56); AST/SGOT 24 U/L (14-36); BLOOD UREA NITROGEN 33 mg/dL (7-21); CALCIUM 9.9 mg/dL (8.4-10.5); GFR AFRICAN-AMERICAN > 60; GFR NON-AFRICAN AMERICAN > 60
[2017-07-25] MEDS: Arformoterol 15 mcg/2 ml Inh Sol IH SCH (07:29)
[2017-07-25] MEDS: Budesonide 0.5 mg/2 ml Inhal Susp UD IH SCH (07:30)
[2017-07-25] MEDS: Albuterol-Ipratrop 3 mg / 0.5 (3 ml) UD IH SCH (07:30)
--- NOTE | 2017-07-25 07:38 | DS ---
LOCATION: Patient currently is in room 235, bed 1. SUBJECTIVE: Patient states she feels fine. There have been no acute events overnight. Review of systems is unremarkable. The patient was initially admitted with a 3-day history of progressive shortness of breath, wheezing, cough as well as tightening of the chest. This was productive of green sputum. A week prior, she was in the office and diagnosed with the flu. In the Emergency Room, she was given bronchodilators as well as intravenous steroids and the wheezing continued. She was then admitted for further treatment. PHYSICAL EXAMINATION VITAL SIGNS: Temperature of 98.5, pulse rate of 89, blood pressure 115/81, respiratory rate of 20 with an O2 saturation of 93%. HEENT: PERRLA, EOMI. No icterus present. NECK: Supple with full range of motion. No adenopathy is present. No bruits were appreciated. LUNGS: Have diminished breath sounds bilaterally, but otherwise clear to auscultation and percussion bilaterally. HEART: With a regular rate and rhythm. No murmurs, rubs, or gallops. ABDOMEN: Soft. It is nontender. Organomegaly is not present. Bowel sounds are normoactive. NEUROLOGIC: Cranial nerves II to XII are intact. Deep tendon reflexes were symmetrical throughout and there were no focal motor deficits. IMPRESSION: At this time, 1. Acute exacerbation of chronic obstructive pulmonary disease. 2. Coronary artery disease with stent placement. 3. Hypertension. 4. Hyperlipidemia. 5. Anxiety. Abdelrahman Ku MD
[2017-07-25 08:04] VITALS: PULSE 100; TEMP 98.7; O2SAT 96
[2017-07-25] MEDS: Insulin Reg-MEDIUM-Coverage SC SCH ×2 (08:25→12:05)
--- NOTE | 2017-07-25 08:43 | PN ---
DATE: 07/25/2017 PULMONARY NOTE SUBJECTIVE: Patient appears very comfortable this morning. She is not short of breath at rest. PHYSICAL EXAMINATION: VITAL SIGNS: Temperature is 98.2, pulse this morning is 88, respiratory rate 18/20, blood pressure 122/86. Last oxygen saturation-- in the chart is measured on room air - 97%. HEENT: Normocephalic, atraumatic. No JVD. CARDIOVASCULAR: Positive S1, S2. No S3 gallop. LUNGS: Clear bilaterally. EXTREMITIES: No clubbing, cyanosis or edema. Calves are nontender to palpation. GASTROINTESTINAL: Abdomen is soft, nontender and nondistended. Bowel sounds are positive. SKIN: No acute rash. NEUROLOGIC: Exam limited at the present time. IMPRESSION: 1. Acute bronchitis. 2. Advanced chronic obstructive pulmonary disease. 3. Leukocytosis - resolving. 4. Coronary artery disease. PLAN: Patient appears very comfortable this morning. She is not short of breath at rest. She does state to feeling much, much better overall. On physical exam, her lungs are now clear. In addition, the oxygen saturation on room air is now 97%. I will continue the current nebulizer treatments and oral steroids (changed yesterday) for now. Continue antibiotics. Repeat a.m. labs are pending. Clinical status of the patient is significantly improved. I will discuss the above with Dr. Ku. Patrice Osborn MD [facility]
[2017-07-25] MEDS: Pantoprazole 40 mg EC Tab PO SCH (09:03)
[2017-07-25] MEDS: Fluticasone Nasal 50 mcg/Spray NS SCH (09:05)
[2017-07-25] MEDS ORDERED: Cefpodoxime (Vantin) 200 mg Tab PO SCH (10:00)
== END 2017-07-25 13:48 | disposition home or self-care (01) | DRG 192 ==
LOC: ED 14:06 → ERH 19:30 → 2A 07-21 08:23
PROVIDERS: ADMIT Student in an Organized Health Care Education/Training Program; ATTEND Student in an Organized Health Care Education/Training Program
DX: J44.1 Chronic obstructive pulmonary disease with (acute) exacerbation (principal); J20.9 Acute bronchitis, unspecified; J44.0 Chronic obstructive pulmonary disease with (acute) lower respiratory infection; R09.02 Hypoxemia; I10 Essential (primary) hypertension; I25.10 Atherosclerotic heart disease of native coronary artery without angina pectoris; F17.210 Nicotine dependence, cigarettes, uncomplicated; F31.9 Bipolar disorder, unspecified; E78.5 Hyperlipidemia, unspecified; F41.9 Anxiety disorder, unspecified; Z79.82 Long term (current) use of aspirin; I25.2 Old myocardial infarction; Z95.5 Presence of coronary angioplasty implant and graft